=== PATIENT | female | born 1990 | race Caucasian/White ===

== ENCOUNTER 2017-11-20 12:13 | Emergency (ER) | payer OTHER ==
[~2017-11-20] VITALS: Ht 157.5 cm; Wt 86.2 kg
[~2017-11-20 12:13] MED LIST: ALBU90OI INH; ALBU90OI6 INH; Advair Hfa 230-12 GM INH; Albuterol2.5 MG/0.5 INH; Amoxicillin500 MG PO; BENZ100A PO; Duoneb 2.5-0.5 M3 ML INH; ERYT.5TO BOTHEYES; FLUSAL1005 INH; FLUSAL2505 INH; FLUT1DIS5 INH; FLUT1DIS8 INH; HYDCOR2.5B TOP; LORA10 PO; MONT10T PO; Prednisone20 MG PO; Pseudoephedrine30 MG PO; Ultram50 MG PO; Vistaril25 MG PO
[2017-11-20] MEDS ORDERED: BENZ100A PO (14:26)
[2017-11-20] MEDS ORDERED: Prednisone20 MG PO (14:26)
[2017-11-20] MEDS ORDERED: FLUT1DIS8 INH (14:26)
[2017-11-20] MEDS ORDERED: Duoneb 2.5-0.5 M3 ML INH (14:26)
[2017-11-20] MEDS ORDERED: ALBU90OI INH (14:44)
== END 2017-11-20 14:36 | disposition home or self-care (01) ==
LOC: ER 12:13
DX: J44.1 Chronic obstructive pulmonary disease with (acute) exacerbation (principal); Z88.2 Allergy status to sulfonamides; Z91.040 Latex allergy status; Z91.018 Allergy to other foods; Z79.52 Long term (current) use of systemic steroids; Z79.899 Other long term (current) drug therapy
CPT/HCPCS: 94640; 94644; 96374; 99283; J2930

== ENCOUNTER 2018-06-26 06:36 | Emergency (ER) | payer OTHER ==
[~2018-06-26] VITALS: Ht 154.9 cm; Wt 88.5 kg
[~2018-06-26 06:36] MED LIST changes: -MONT5TCH; -PRED20 PO; -TRAM50 PO
[2018-06-26] MEDS ORDERED: MONT5TCH (06:50)
[2018-06-26] MEDS ORDERED: TRAM50 PO (06:50)
[2018-06-26] MEDS ORDERED: PRED20 PO (08:27)
== END 2018-06-26 08:50 | disposition home or self-care (01) ==
LOC: ER 06:36
DX: J45.901 Unspecified asthma with (acute) exacerbation (principal); Z88.2 Allergy status to sulfonamides; Z91.040 Latex allergy status; Z91.018 Allergy to other foods; Z79.899 Other long term (current) drug therapy
CPT/HCPCS: 36415; 94640; 96361; 96365; 96375; 99285-25; J2930; J3475; J7030

== ENCOUNTER → 2018-06-26 | Outpatient (CLI) | payer OTHER ==
[~2018-06-26] MED LIST changes: +MONT5TCH; +PRED20 PO; +TRAM50 PO
== END ==
LOC: LAB SHORT 11:20 → LAB 11:20
PROVIDERS: Nurse Practitioner Family
DX: Z01.419 Encounter for gynecological examination (general) (routine) without abnormal findings (principal)
CPT/HCPCS: G0145

== ENCOUNTER 2018-08-13 12:19 | Emergency (ER) | payer OTHER ==
[~2018-08-13] VITALS: Ht 162.6 cm; Wt 90.7 kg
[~2018-08-13 12:19] MED LIST changes: +MONT5TCH; +PRED20 PO; +TRAM50 PO
[2018-08-13] MEDS ORDERED: AMOX875 PO (12:36)
[2018-08-13] MEDS ORDERED: KETO10 PO (13:36)
== END 2018-08-13 14:01 | disposition home or self-care (01) ==
LOC: ER 12:19
DX: K08.89 Other specified disorders of teeth and supporting structures (principal); Z88.2 Allergy status to sulfonamides; Z91.040 Latex allergy status; Z91.018 Allergy to other foods; J45.909 Unspecified asthma, uncomplicated
CPT/HCPCS: 64400; 96372; 99282-25; J1885

== ENCOUNTER 2018-12-08 02:38 | Emergency (ER) | payer OTHER ==
[~2018-12-08] VITALS: Ht 157.5 cm; Wt 81.7 kg
[~2018-12-08 02:38] MED LIST changes: +AMOX875 PO; +KETO10 PO
[2018-12-08] MEDS ORDERED: BUDE6HFA INH (03:18)
[2018-12-08] MEDS ORDERED: BENZ100A PO (04:48)
[2018-12-08] MEDS ORDERED: Prednisone20 MG PO (04:48)
[2018-12-08] MEDS ORDERED: Zithromax250 MG PO (04:48)
[2018-12-08] MEDS ORDERED: ALBU3IS INH (04:48)
== END 2018-12-08 05:10 | disposition home or self-care (01) ==
LOC: ER 02:38
DX: J45.901 Unspecified asthma with (acute) exacerbation (principal); J18.1 Lobar pneumonia, unspecified organism; Z88.2 Allergy status to sulfonamides; Z79.899 Other long term (current) drug therapy
CPT/HCPCS: 36415; 71045; 93005; 93010; 94644; 96374; 99285-25; J2930

== ENCOUNTER 2019-11-22 05:31 | Emergency (ER) | payer OTHER ==
[~2019-11-22] VITALS: Ht 154.9 cm; Wt 85.7 kg
[~2019-11-22 05:31] MED LIST changes: +ALBU3IS INH; +BUDE6HFA INH; +Zithromax250 MG PO
[2019-11-22] MEDS ORDERED: Diflucan150 MG PO (05:48)
[2019-11-22] MEDS ORDERED: PRED20 PO (06:18)
[2019-11-22] MEDS ORDERED: BENZ100A PO (06:34)
[2019-11-22 06:35] LABS: Influenza A Negative (NEGATIVE); Influenza B Negative (NEGATIVE)
== END 2019-11-22 06:43 | disposition home or self-care (01) ==
LOC: ER 05:31
PROVIDERS: Emergency Medicine
DX: J45.901 Unspecified asthma with (acute) exacerbation (principal); Z88.2 Allergy status to sulfonamides; Z91.018 Allergy to other foods; Z91.040 Latex allergy status; Z79.899 Other long term (current) drug therapy; Z79.51 Long term (current) use of inhaled steroids
CPT/HCPCS: 87804; 94640; 99283-25; J7512

== ENCOUNTER 2020-09-04 10:46 | Emergency (ER) | payer OTHER ==
[~2020-09-04] VITALS: Ht 157.5 cm; Wt 72.6 kg
[~2020-09-04 10:46] MED LIST changes: -BUDE.25 INH; -PRENATAL TABLE1 EAC2 PO
[2020-09-04] MEDS ORDERED: PRENATAL TABLE1 EAC2 PO (12:40)
[2020-09-04] MEDS ORDERED: BUDE.25 INH (13:32)
[2020-09-04] MEDS ORDERED: PRED20 PO (13:32)
[2020-09-04] MEDS ORDERED: ALBU90OI INH (13:32)
== END 2020-09-04 15:08 | disposition home or self-care (01) ==
LOC: ER 10:46
DX: J45.909 Unspecified asthma, uncomplicated (principal); Z88.2 Allergy status to sulfonamides; Z91.018 Allergy to other foods; Z91.040 Latex allergy status; Z79.52 Long term (current) use of systemic steroids; Z79.899 Other long term (current) drug therapy
CPT/HCPCS: 96365; 96375; 99284-25; J2930; J3475

== ENCOUNTER → 2020-09-04 | Outpatient (CLI) | payer OTHER ==
[~2020-09-04] MED LIST changes: +BUDE.25 INH; +Diflucan150 MG PO; +PRENATAL TABLE1 EAC2 PO
== END | disposition home or self-care (01) ==
LOC: LAB EV 11:00 → LAB SHORT 11:00
DX: J45.901 Unspecified asthma with (acute) exacerbation (principal)
CPT/HCPCS: U0003

== ENCOUNTER → 2020-09-17 | Outpatient (CLI) | payer OTHER ==
[~2020-09-17] MED LIST changes: +BUDE.25 INH; +PRENATAL TABLE1 EAC2 PO
== END | disposition home or self-care (01) ==
LOC: LAB SHORT 10:06 → LAB 10:06
PROVIDERS: Obstetrics & Gynecology
DX: O09.91 Supervision of high risk pregnancy, unspecified, first trimester (principal)
CPT/HCPCS: G0123

== ENCOUNTER → 2021-03-01 | Outpatient (CLI) | payer OTHER | END | disposition home or self-care (01) | LOC: LAB SHORT 16:41 | DX: O09.91 Supervision of high risk pregnancy, unspecified, first trimester (principal) | CPT/HCPCS: 87081; 87150 ==

== ENCOUNTER 2021-03-23 16:05 | Inpatient (IN) | payer OTHER ==
[~2021-03-23] VITALS: Ht 157.5 cm; Wt 104.0 kg
[2021-03-23] MEDS ORDERED: FLUT1DIS2 INH (16:40)
[2021-03-23 17:01] LABS: BASOPHILS ABSOLUTE AUTO 0.07 K/mm3 (0.00-0.23); BASOPHILS PERCENT AUTO 0 % (0-2); EOSINOPHILS PERCENT AUTO 4 % (0-6); Hematocrit 40.4 % (33.0-51.0); Hemoglobin 13.2 g/dL (11.5-16.0); IMMATURE GRAN ABSOLUTE AUTO 0.11 K/mm3 (0.00-0.10); IMMATURE GRAN PERCENT AUTO 1 % (0-1); LYMPHOCYTES ABSOLUTE AUTO 2.91 K/mm3 (0.84-5.20); LYMPHOCYTES PERCENT AUTO 16 % (21-46); MONOCYTES PERCENT AUTO 5 % (4-13); Mean Corpuscular HGB Conc 32.7 g/dL (31.5-36.5); Mean Corpuscular Volume 83 fL (80-100); Mean Platelet Volume 9.4 fL (9.1-12.4); NEUTROPHILS ABSOLUTE AUTO 13.67 K/mm3 (1.96-9.15); NEUTROPHILS PERCENT AUTO 74 % (41-73); Platelet Count 346 K/mm3 (150-400); RDW Standard Deviation 45.1 fL (35.1-46.3); Red Blood Cell Count 4.88 M/mm3 (3.80-5.20); White Blood Cell Count 18.46 K/mm3 (4.00-11.30)
[2021-03-23 17:20] LABS: SARS-Cov-2 (COVID-19) PCR, MMC NEGATIVE (NEGATIVE)
--- NOTE | 2021-03-24 18:49 | NUR ---
03/24/21 184 Luz Elena Perez 89 DELIVERY VIABLE FEMALE INFANT, APGARS 9/9 WEIGHT 3080GM, 6# 13 OZ HEAD 12.5, CHEST 13 INCHES, LENGTH 20 I NCHEST, UMBILICAL CORD BLOOD COLLECTED FOR TYPE AND RH, GIVEN TO YURY KINCAID
[2021-03-25 06:07] LABS: BASOPHILS ABSOLUTE AUTO 0.07 K/mm3 (0.00-0.23); BASOPHILS PERCENT AUTO 0 % (0-2); EOSINOPHILS ABSOLUTE AUTO 0.35 K/mm3 (0.00-0.68); EOSINOPHILS PERCENT AUTO 2 % (0-6); Hematocrit 37.5 % (33.0-51.0); Hemoglobin 12.2 g/dL (11.5-16.0); IMMATURE GRAN PERCENT AUTO 1 % (0-1); LYMPHOCYTES ABSOLUTE AUTO 2.92 K/mm3 (0.84-5.20); LYMPHOCYTES PERCENT AUTO 14 % (21-46); MONOCYTES ABSOLUTE AUTO 1.27 K/mm3 (0.16-1.47); MONOCYTES PERCENT AUTO 6 % (4-13); Mean Corpuscular HGB 26.9 pg (26.0-34.0); Mean Corpuscular HGB Conc 32.5 g/dL (31.5-36.5); Mean Corpuscular Volume 83 fL (80-100); NEUTROPHILS ABSOLUTE AUTO 16.27 K/mm3 (1.96-9.15); NEUTROPHILS PERCENT AUTO 78 % (41-73); Platelet Count 293 K/mm3 (150-400); RDW Coefficient Variation 15.2 % (11.7-14.2); RDW Standard Deviation 45.5 fL (35.1-46.3); Red Blood Cell Count 4.53 M/mm3 (3.80-5.20); White Blood Cell Count 20.98 K/mm3 (4.00-11.30)
--- NOTE | 2021-03-25 16:46 | NUR ---
CONSULT, ALMOST 24 HOURS OLD NOW. MOM ABLE TO SELF LATCH BABY IN FOOTBALL POSITION. LATCH IS SOMEWHAT NARROW, INSTRUCT/DEMO WIDENING LATCH FOR COMFORT AND TRANSFER, AND BABY LEFT A COMPRESSION STRIP UPON RELEASE. DEMO WHERE MILK DUCTS ARE FOR BABY'S LIPS TO COMPRESS DURING BF. INSTRUCT IN CHANGES TO EXPECT DURING THE FIRST WEEK WITH BABY AND WITH MOM. QUESTIONS ANSWERED. BOTH PARENTS ATTENTIVE.
[2021-03-26] MEDS ORDERED: OXYC5 PO (14:58)
== END 2021-03-26 16:19 | disposition home or self-care (01) | DRG 788 ==
LOC: OBS 16:05 → BC 16:11 → OBS 16:19 → BC 16:20
PROVIDERS: ADMIT Obstetrics & Gynecology
PROC: 10H07YZ Insertion of Other Device into Products of Conception, Via Natural or Artificial Opening (ICD-10-PCS; 2021-03-24)
PROC: 10D00Z1 Extraction of Products of Conception, Low, Open Approach (ICD-10-PCS; principal; 2021-03-24 17:00)
PROC: 3E0234Z Introduction of Serum, Toxoid and Vaccine into Muscle, Percutaneous Approach (ICD-10-PCS; 2021-03-25)
DX: O99.214 Obesity complicating childbirth (principal); O99.52 Diseases of the respiratory system complicating childbirth; O10.92 Unspecified pre-existing hypertension complicating childbirth; Z3A.39 39 weeks gestation of pregnancy; Z37.0 Single live birth; Z20.822 Contact with and (suspected) exposure to COVID-19; Z91.010 Allergy to peanuts; J45.40 Moderate persistent asthma, uncomplicated; E66.9 Obesity, unspecified; O62.1 Secondary uterine inertia; O33.9 Maternal care for disproportion, unspecified; O26.893 Other specified pregnancy related conditions, third trimester; O99.824 Streptococcus B carrier state complicating childbirth; O77.0 Labor and delivery complicated by meconium in amniotic fluid; Z91.040 Latex allergy status; Z91.018 Allergy to other foods; O76 Abnormality in fetal heart rate and rhythm complicating labor and delivery; O99.891 Other specified diseases and conditions complicating pregnancy; G56.00 Carpal tunnel syndrome, unspecified upper limb; Z67.41 Type O blood, Rh negative
CPT/HCPCS: 36415; 51702; 83020; 85025; 86850; 86900; 86901; 94640; 94760; 96372; A9270; J0290; J0456; J0690; J1885; J2370; J2405; J2590; J2765; J3010; J7050; J7120; U0004

== ENCOUNTER 2021-10-05 17:52 | Emergency (ER) | payer OTHER ==
[~2021-10-05] VITALS: Ht 154.9 cm; Wt 108.0 kg
[~2021-10-05 17:52] MED LIST changes: +FLUT1DIS2 INH; +OXYC5 PO
[2021-10-05] MEDS ORDERED: IPRAT-ALBUT 0.5-3 ML NEB (20:39)
== END 2021-10-05 20:23 | disposition home or self-care (01) ==
LOC: ER 17:52
DX: J45.901 Unspecified asthma with (acute) exacerbation (principal); Z88.2 Allergy status to sulfonamides; Z91.018 Allergy to other foods; Z91.040 Latex allergy status; Z91.010 Allergy to peanuts; Z79.899 Other long term (current) drug therapy
CPT/HCPCS: 94640; 99284-25

== ENCOUNTER 2024-03-14 12:33 | Emergency (ER) | payer OTHER ==
[~2024-03-14] VITALS: Ht 157.5 cm; Wt 104.3 kg
[~2024-03-14 12:33] MED LIST changes: +IPRAT-ALBUT 0.5-3 ML NEB
[2024-03-14 13:02] LABS: BASOPHILS ABSOLUTE AUTO 0.03 K/mm3 (0.00-0.23); BASOPHILS PERCENT AUTO 0 % (0-2); EOSINOPHILS ABSOLUTE AUTO 0.31 K/mm3 (0.00-0.68); EOSINOPHILS PERCENT AUTO 3 % (0-6); Hematocrit 42.5 % (33.0-51.0); Hemoglobin 13.3 g/dL (11.5-16.0); IMMATURE GRAN ABSOLUTE AUTO 0.04 K/mm3 (0.00-0.10); IMMATURE GRAN PERCENT AUTO 0 % (0-1); LYMPHOCYTES ABSOLUTE AUTO 3.24 K/mm3 (0.84-5.20); LYMPHOCYTES PERCENT AUTO 26 % (21-46); MONOCYTES ABSOLUTE AUTO 0.69 K/mm3 (0.16-1.47); MONOCYTES PERCENT AUTO 6 % (4-13); Mean Corpuscular HGB 25.9 pg (26.0-34.0); Mean Corpuscular HGB Conc 31.3 g/dL (31.5-36.5); Mean Corpuscular Volume 83 fL (80-100); Mean Platelet Volume 9.3 fL (9.1-12.4); NEUTROPHILS ABSOLUTE AUTO 8.18 K/mm3 (1.96-9.15); NEUTROPHILS PERCENT AUTO 66 % (41-73); Platelet Count 308 K/mm3 (150-400); RDW Coefficient Variation 15.4 % (11.7-14.2); RDW Standard Deviation 46.8 fL (35.1-46.3); Red Blood Cell Count 5.14 M/mm3 (3.80-5.20); White Blood Cell Count 12.49 K/mm3 (4.00-11.30)
[2024-03-14] MEDS ORDERED: Ondansetron HCl 2 MG / ML 2ML Vial IV ONE (13:35)
[2024-03-14] MEDS ORDERED: Morphine Sulfate 10 MG/ML 1MLSYR IV ONE (13:35)
[2024-03-14] MEDS ORDERED: Rho(D) Immune Globulin 300 MCG / SYR IM ONE (13:35)
[2024-03-14 13:46] LABS: Albumin, Blood 3.5 g/dL (3.4-5.0); Albumin/Globulin Ratio 0.8 (0.8-1.8); Bilirubin, Total 0.3 mg/dL (0.1-1.0); Bun/Creatinine Ratio 15.5 (12.0-20.0); Calcium, Blood 9.2 mg/dL (8.5-10.1); Creatinine, Blood 0.77 mg/dL (0.40-1.00); Globulin, Blood 4.2 g/dL (2.2-4.0); Total Protein, Blood 7.7 g/dL (6.4-8.2)
[2024-03-14 15:45] VITALS: BP 113/67
[2024-03-14] MEDS ORDERED: Morphine Sulfate 4 MG/1 ML Injection IV ONE (15:45)
[2024-03-14] MEDS ORDERED: Ketorolac Tromethamine 30mg Vial IV ONE (15:45)
[2024-03-14] MEDS ORDERED: OXAYDO5 M1 PO (15:46)
[2024-03-14] MEDS ORDERED: ONDA4ODT MM (15:46)
== END 2024-03-14 16:10 | disposition home or self-care (01) ==
LOC: ER 12:33
PROVIDERS: Student in an Organized Health Care Education/Training Program
DX: O03.9 Complete or unspecified spontaneous abortion without complication (principal); Z88.2 Allergy status to sulfonamides; Z91.018 Allergy to other foods; Z79.899 Other long term (current) drug therapy; Z91.010 Allergy to peanuts; J45.909 Unspecified asthma, uncomplicated
CPT/HCPCS: 76801; 76817; 80053; 84702; 85025; 86850; 86900; 86901; 96372-59; 96374; 96375; 96376; 99284-25; J1885; J2270; J2405; J2791

== ENCOUNTER → 2025-01-15 | Outpatient (CLI) | payer OTHER ==
[~2025-01-15] MED LIST changes: +ONDA4ODT MM; +OXAYDO5 M1 PO
[2025-01-24 02:53] LABS: HPV HIGH RISK BY TMA Not Detected; HPV SOURCE Cervical
== END ==
LOC: LAB SHORT 18:08 → LAB 18:08
PROVIDERS: Obstetrics & Gynecology
DX: Z01.419 Encounter for gynecological examination (general) (routine) without abnormal findings (principal)
CPT/HCPCS: 87624; G0123

== ENCOUNTER → 2025-06-24 | Outpatient (CLI) | payer OTHER | LOC: LAB 11:41 → LAB SHORT 11:41 | DX: O10.013 Pre-existing essential hypertension complicating pregnancy, third trimester (principal); O09.93 Supervision of high risk pregnancy, unspecified, third trimester; O34.211 Maternal care for low transverse scar from previous cesarean delivery; O99.213 Obesity complicating pregnancy, third trimester; O99.323 Drug use complicating pregnancy, third trimester; O99.513 Diseases of the respiratory system complicating pregnancy, third trimester; F12.90 Cannabis use, unspecified, uncomplicated; Z3A.00 Weeks of gestation of pregnancy not specified | CPT/HCPCS: 87081; 87150 ==

== ENCOUNTER 2025-07-16 05:21 | Inpatient (IN) | payer OTHER ==
[~2025-07-16] VITALS: Ht 157.5 cm; Wt 115.9 kg
[2025-07-16] VITALS (24 sets, daily range): BP systolic 109–184; BP diastolic 54–92
[2025-07-16] MEDS ORDERED: Metoclopramide HCl 5MG / ML 2ML Vial IV SCH (05:25)
[2025-07-16] MEDS ORDERED: Citric Acid/Sodium Citrate 30 ML BTL PO SCH (05:25)
[2025-07-16] MEDS ORDERED: CeFAZolin Sodium 2,000 MG in NS 100 ML IV SCH (05:25)
[2025-07-16 05:57] LABS: BASOPHILS ABSOLUTE AUTO 0.03 K/mm3 (0.00-0.23); BASOPHILS PERCENT AUTO 0 % (0-2); EOSINOPHILS ABSOLUTE AUTO 0.13 K/mm3 (0.00-0.68); EOSINOPHILS PERCENT AUTO 1 % (0-6); Hematocrit 38.7 % (33.0-51.0); Hemoglobin 12.7 g/dL (11.5-16.0); IMMATURE GRAN ABSOLUTE AUTO 0.12 K/mm3 (0.00-0.10); IMMATURE GRAN PERCENT AUTO 1 % (0-1); LYMPHOCYTES ABSOLUTE AUTO 2.66 K/mm3 (0.84-5.20); LYMPHOCYTES PERCENT AUTO 23 % (21-46); MONOCYTES ABSOLUTE AUTO 0.78 K/mm3 (0.16-1.47); MONOCYTES PERCENT AUTO 7 % (4-13); Mean Corpuscular HGB Conc 32.8 g/dL (31.5-36.5); Mean Corpuscular Volume 84 fL (80-100); NEUTROPHILS ABSOLUTE AUTO 7.91 K/mm3 (1.96-9.15); NEUTROPHILS PERCENT AUTO 68 % (41-73); NRBC ABSOLUTE 0.00 K/mm3 (0.00-0.02); NRBC Auto 0.0 /100 WBC (0.0-0.2); Platelet Count 214 K/mm3 (150-400); RDW Coefficient Variation 17.2 % (11.7-14.2); RDW Standard Deviation 51.8 fL (35.1-46.3)
[2025-07-16] MEDS ORDERED: ASPI81CH PO (06:10)
[2025-07-16] MEDS ORDERED: FLUT1DIS8 INH (06:10)
[2025-07-16 06:17] LABS: Alanine Aminotransfer (ALT/SGP 14.0 U/L (12-78); Albumin, Blood 2.6 g/dL (3.4-5.0); Albumin/Globulin Ratio 0.6 (0.8-1.8); Anion Gap 13.0 mmol/L (3-11); Aspartate Aminotrans (AST/SGOT 18.0 U/L (12-37); Bilirubin, Total 0.2 mg/dL (0.1-1.0); Blood Urea Nitrogen 10.0 mg/dL (8-24); CO2, Blood 20.0 mmol/L (21-32); Calcium, Blood 8.9 mg/dL (8.5-10.1); Chloride, Blood 109.0 mmol/L (98-108); Creatinine, Blood 0.64 mg/dL (0.40-1.00); Globulin, Blood 4.0 g/dL (2.2-4.0); Glucose, Blood 80.0 mg/dL (70-99); Potassium, Blood 3.6 mmol/L (3.5-5.5); Sodium, Blood 138.0 mmol/L (136-145); Total Protein, Blood 6.6 g/dL (6.4-8.2)
[2025-07-16] MEDS ORDERED: LEVSOD25 PO (06:34)
[2025-07-16] MEDS ORDERED: Albuterol 2.5 MG/3 ML VIAL INH PRN (07:15)
[2025-07-16] MEDS ORDERED: FentaNYL Citrate 50 MCG/ML 2 ML Injection IV PRN ×2 (07:15→07:20)
[2025-07-16] MEDS ORDERED: Citric Acid/Sodium Citrate 30 ML BTL PO ONE (07:15)
[2025-07-16] MEDS ORDERED: Metoclopramide HCl 5MG / ML 2ML Vial IV ONE (07:20)
[2025-07-16] MEDS ORDERED: Prochlorperazine Edisylate 10 mg Vial IV PRN (07:20)
[2025-07-16] MEDS ORDERED: HYDROmorphone HCl/Pf 1MG SYR IV PRN (07:20)
[2025-07-16] MEDS ORDERED: Ondansetron HCl 2 MG / ML 2ML Vial IV PRN ×2 (07:20→07:50)
[2025-07-16] MEDS ORDERED: Magnesium Hydroxide Conc 10 ML UDC PO PRN (07:45)
[2025-07-16] MEDS ORDERED: Carboprost Tromethamine 250 MCG/ML 1ML Amp IM PRN (07:45)
[2025-07-16] MEDS ORDERED: OXYTOCIN/RINGER'S LACTATE 500 ML IV SCH (07:50)
[2025-07-16] MEDS ORDERED: Methylergonovine Maleate 0.2MG / ML 1ML Amp IM PRN (07:55)
[2025-07-16] MEDS ORDERED: Ketorolac Tromethamine 30mg Vial IV SCH (08:00)
[2025-07-16] MEDS ORDERED: Phenylephrine HCl 100 MCG/ML-NS 10MLSYR (1MG/10ML) ONE (08:13)
[2025-07-16] MEDS ORDERED: Oxytocin 10 Unit / ML Vial ONE (08:13)
[2025-07-16] MEDS ORDERED: Dexamethasone Sod Phos 10 MG/ML 1ML VIAL ONE (08:25)
[2025-07-16] MEDS ORDERED: FentaNYL Citrate 50 MCG/ML 2 ML Injection ONE ×2 (08:32→09:12)
[2025-07-16] MEDS ORDERED: DiphenhydrAMINE HCl 50 MG/ML 1ML Vial ONE (08:37)
--- NOTE | 2025-07-16 08:59 | NUR ---
07/16/25 0859 Gracie Townsend VIABLE FEMALE BORN AT 0821. CORD BLOOD GIVEN TO RYAN POSADA CNA TO TAKE TUBE SEGMENTS TO PATHOLOGY.
[2025-07-16] MEDS ORDERED: Prenatal Vit/FE Fumarate/FA 1 Tab PO SCH (09:00)
[2025-07-16] MEDS ORDERED: Ketorolac Tromethamine 30mg Vial IV PRN (21:40)
[2025-07-17 00:09] VITALS: BP 130/59
[2025-07-17 04:32] VITALS: BP 144/68
[2025-07-17 05:20] LABS: BASOPHILS ABSOLUTE AUTO 0.05 K/mm3 (0.00-0.23); BASOPHILS PERCENT AUTO 0 % (0-2); EOSINOPHILS ABSOLUTE AUTO 0.08 K/mm3 (0.00-0.68); EOSINOPHILS PERCENT AUTO 1 % (0-6); Hematocrit 35.5 % (33.0-51.0); Hemoglobin 11.8 g/dL (11.5-16.0); IMMATURE GRAN ABSOLUTE AUTO 0.16 K/mm3 (0.00-0.10); IMMATURE GRAN PERCENT AUTO 1 % (0-1); LYMPHOCYTES ABSOLUTE AUTO 3.67 K/mm3 (0.84-5.20); LYMPHOCYTES PERCENT AUTO 21 % (21-46); MONOCYTES ABSOLUTE AUTO 1.16 K/mm3 (0.16-1.47); MONOCYTES PERCENT AUTO 7 % (4-13); Mean Corpuscular HGB Conc 33.2 g/dL (31.5-36.5); Mean Corpuscular Volume 85 fL (80-100); NEUTROPHILS ABSOLUTE AUTO 12.26 K/mm3 (1.96-9.15); NEUTROPHILS PERCENT AUTO 71 % (41-73); NRBC ABSOLUTE 0.00 K/mm3 (0.00-0.02); NRBC Auto 0.0 /100 WBC (0.0-0.2); Platelet Count 194 K/mm3 (150-400); RDW Coefficient Variation 17.1 % (11.7-14.2); RDW Standard Deviation 52.3 fL (35.1-46.3)
[2025-07-17 07:29] VITALS: BP 118/63
[2025-07-17 11:37] VITALS: BP 140/77
== END 2025-07-17 13:42 | disposition home or self-care (01) | DRG 784 ==
LOC: BC 05:21
PROVIDERS: ADMIT Obstetrics & Gynecology
PROC: 10D00Z1 Extraction of Products of Conception, Low, Open Approach (ICD-10-PCS; principal; 2025-07-16 07:30)
PROC: 0UT70ZZ Resection of Bilateral Fallopian Tubes, Open Approach (ICD-10-PCS; 2025-07-16 07:30)
DX: O34.211 Maternal care for low transverse scar from previous cesarean delivery (principal); O10.92 Unspecified pre-existing hypertension complicating childbirth; O99.52 Diseases of the respiratory system complicating childbirth; Z37.0 Single live birth; J45.40 Moderate persistent asthma, uncomplicated; E66.01 Morbid (severe) obesity due to excess calories; O77.0 Labor and delivery complicated by meconium in amniotic fluid; Z30.2 Encounter for sterilization; O26.893 Other specified pregnancy related conditions, third trimester; Z67.41 Type O blood, Rh negative; O99.284 Endocrine, nutritional and metabolic diseases complicating childbirth; E03.9 Hypothyroidism, unspecified; Z3A.39 39 weeks gestation of pregnancy
CPT/HCPCS: 36415; 80053; 85025; 86850; 86900; 86901; 86923; 88302; A9270; J0690; J1100; J1200; J1885; J2371; J2590; J2765; J3010; J7120

== ENCOUNTER → 2025-08-13 | Outpatient (CLI) | payer OTHER ==
[~2025-08-13] MED LIST changes: +ASPI81CH PO; +ATHLETE'S FOO35.4 GM TOP; +LEVSOD25 PO
[2025-08-13 14:25] LABS: Source, Urine Clean Catch
[2025-08-13 15:45] LABS: Bilirubin, Urine Neg (Neg); Color, Urine Yellow (P-Yellow); Glucose Qualitative, Urine Neg (Neg); Ketones, Urine Neg (Neg); Leukocyte Esterase, Urine 3+ (Neg); Protein, Urine 1+ (Neg); Specific Gravity, Urine 1.025 (1.003-1.022); Urobilinogen, Urine NORM (Normal)
[2025-08-13 16:49] LABS: Candida Group, PCR NOT DETECTED (NOT DETECT); Candida glabrata-krusei, PCR NOT DETECTED (NOT DETECT)
[2025-08-13 17:09] LABS: Bacterial Vaginosis PCR Positive (NEGATIVE)
== END ==
LOC: LAB SHORT 14:22 → LAB 14:22
PROVIDERS: Obstetrics & Gynecology
DX: N76.0 Acute vaginitis (principal); R30.0 Dysuria
CPT/HCPCS: 81001; 81515; 87086

== ENCOUNTER 2025-08-31 12:33 | Emergency (ER) | payer OTHER ==
[~2025-08-31] VITALS: Ht 157.5 cm; Wt 97.5 kg
[2025-08-31 12:49] VITALS: BP 135/89
[2025-08-31 15:18] LABS: BASOPHILS ABSOLUTE AUTO 0.03 K/mm3 (0.00-0.23); BASOPHILS PERCENT AUTO 0 % (0-2); EOSINOPHILS ABSOLUTE AUTO 0.22 K/mm3 (0.00-0.68); EOSINOPHILS PERCENT AUTO 2 % (0-6); Hematocrit 45.1 % (33.0-51.0); Hemoglobin 14.3 g/dL (11.5-16.0); IMMATURE GRAN ABSOLUTE AUTO 0.03 K/mm3 (0.00-0.10); IMMATURE GRAN PERCENT AUTO 0 % (0-1); LYMPHOCYTES ABSOLUTE AUTO 3.35 K/mm3 (0.84-5.20); LYMPHOCYTES PERCENT AUTO 33 % (21-46); MONOCYTES ABSOLUTE AUTO 0.50 K/mm3 (0.16-1.47); MONOCYTES PERCENT AUTO 5 % (4-13); Mean Corpuscular HGB Conc 31.7 g/dL (31.5-36.5); Mean Corpuscular Volume 87 fL (80-100); NEUTROPHILS ABSOLUTE AUTO 5.93 K/mm3 (1.96-9.15); NEUTROPHILS PERCENT AUTO 59 % (41-73); NRBC ABSOLUTE 0.00 K/mm3 (0.00-0.02); NRBC Auto 0.0 /100 WBC (0.0-0.2); Platelet Count 265 K/mm3 (150-400); RDW Coefficient Variation 15.5 % (11.7-14.2); RDW Standard Deviation 49.1 fL (35.1-46.3)
[2025-08-31 15:41] LABS: Alanine Aminotransfer (ALT/SGP 26.0 U/L (12-78); Albumin, Blood 3.7 g/dL (3.4-5.0); Albumin/Globulin Ratio 0.9 (0.8-1.8); Anion Gap 10.0 mmol/L (3-11); Aspartate Aminotrans (AST/SGOT 15.0 U/L (12-37); Bilirubin, Total 0.3 mg/dL (0.1-1.0); Blood Urea Nitrogen 12.0 mg/dL (8-24); CO2, Blood 24.0 mmol/L (21-32); Calcium, Blood 8.7 mg/dL (8.5-10.1); Chloride, Blood 109.0 mmol/L (98-108); Creatinine, Blood 0.86 mg/dL (0.40-1.00); Globulin, Blood 3.9 g/dL (2.2-4.0); Glucose, Blood 92.0 mg/dL (70-99); Potassium, Blood 3.8 mmol/L (3.5-5.5); Sodium, Blood 139.0 mmol/L (136-145); Total Protein, Blood 7.6 g/dL (6.4-8.2)
[2025-08-31 15:55] LABS: Source, Urine Clean Catch
[2025-08-31 16:01] LABS: Bilirubin, Urine Neg (Neg); Color, Urine Red (P-Yellow); Glucose Qualitative, Urine Neg (Neg); Ketones, Urine Neg (Neg); Leukocyte Esterase, Urine 2+ (Neg); Protein, Urine 3+ (Neg); Specific Gravity, Urine 1.025 (1.003-1.022); Urobilinogen, Urine NORM (Normal)
[2025-08-31 16:08] LABS: Red Blood Cells, Urine TNTC /hpf (0-2)
[2025-08-31] MEDS ORDERED: CEPH500 PO (16:23)
== END 2025-08-31 16:40 | disposition home or self-care (01) ==
LOC: ER 12:33
PROVIDERS: Emergency Medicine
DX: O90.0 Disruption of cesarean delivery wound (principal); O72.1 Other immediate postpartum hemorrhage; N39.0 Urinary tract infection, site not specified; J45.909 Unspecified asthma, uncomplicated; Z88.2 Allergy status to sulfonamides; Z91.040 Latex allergy status; Z91.018 Allergy to other foods; Z91.010 Allergy to peanuts; Z79.82 Long term (current) use of aspirin; Z79.899 Other long term (current) drug therapy; Z79.890 Hormone replacement therapy
CPT/HCPCS: 76830; 76856; 80053; 81001; 81025; 85025; 86850; 86900; 86901; 87086; 99283-25; A9270

== ENCOUNTER → 2025-09-02 | Outpatient (CLI) | payer OTHER ==
[~2025-09-02] MED LIST changes: +CEPH500 PO
[2025-09-02 15:59] LABS: Bacterial Vaginosis PCR Negative (NEGATIVE); Candida Group, PCR NOT DETECTED (NOT DETECT); Candida glabrata-krusei, PCR NOT DETECTED (NOT DETECT)
== END ==
LOC: LAB 12:07 → LAB SHORT 12:07
PROVIDERS: Obstetrics & Gynecology
DX: N76.0 Acute vaginitis (principal)
CPT/HCPCS: 81515